=== PATIENT | male | born 1980 | race Caucasian/White ===

== ENCOUNTER 2017-06-25 14:29 | Inpatient (IN) | payer SELFPAY ==
[~2017-06-25] VITALS: Ht 188 cm; Wt 95.0 kg
[~2017-06-25 14:29] MED LIST: Z.0.NO CURRENT MEDS
[2017-06-25 14:30] VITALS: BP 153/97; PULSE 150; RESP 24; TEMP 103; O2SAT 97
[2017-06-25 14:38] VITALS: BP 160/99; PULSE 133; RESP 18; TEMP 103.6; O2SAT 97
[2017-06-25] MEDS ORDERED: SODIUM CHLOR 0.9% 1000 ML INJ 1,000 ML IV SCH ×2 (14:40→14:44)
[2017-06-25] MEDS ORDERED: ONDANSETRON HCL 4 MG/2 ML VIAL IVP ONE (14:45)
[2017-06-25] MEDS ORDERED: VANCOMYCIN INJ 1,000 MG in SODIUM CHLOR 0.9% 250 ML INJ 250 ML IV ONE (14:45)
[2017-06-25] MEDS ORDERED: ACETAMINOPHEN 325 MG TAB PO ONE (14:45)
[2017-06-25] MEDS ORDERED: PIPERACIL-TAZO 3.375 GM PREMIX 50 ML IV ONE (14:45)
[2017-06-25] MEDS ORDERED: MORPHINE SULFATE 4 MG/ML INJ IV PUSH ONE (14:45)
--- NOTE | 2017-06-25 14:53 | PD ---
HPI Chief Complaint: Fever Time Seen by Provider: 14:40 Travel History International Travel<30 days: No Contact w/Intl Traveler<30days: No Traveled to known affect area: No History of Present Illness HPI 36-year-old male to presents to the ED for evaluation of abscess to his right biceps. Per patient she's had this for about 4 days now. Per patient he has a long-standing history of IV drug abuse and per patient he was clean for 5 years but had a relapse. He injected on that same arm around 5 days ago and he started noticing this. Per patient one of his uncles give him an antibiotic but it didn't seem to help. Per patient he then tried to omero it himself with no success and his been getting bigger and more painful. Patient initially was seen and he does appear to be very tachycardic in the 140s 150s with a temperature 100.3. Patient uses Dilaudid. He states having some body aches as well as chest discomfort. He has an allergy to shellfish. Denies any trauma. Unclear of his last tetanus shot. No other medical issues noted. PFSH Past Medical History Musculoskeletal: Yes (LOWER BACK PAIN) Social History Alcohol Use: Yes Tobacco Use: Yes Substance Use: Yes (OXY) Allergies-Medications (Allergen,Severity, Reaction): Coded Allergies: shellfish derived (Verified Allergy, Severe, 06/25/17) Reported Meds & Prescriptions Reported Meds & Active Scripts Active Reported No Current Meds (Miscellaneous Medication) Misc Review of Systems Except as stated in HPI: all other systems reviewed are Neg Physical Exam Narrative GENERAL: SKIN: Warm and dry. HEAD: Atraumatic. Normocephalic. EYES: Pupils equal and round. No scleral icterus. No injection or drainage. ENT: No nasal bleeding or discharge. Mucous membranes pink and moist. Tongue is midline. No uvula deviation. NECK: Trachea midline. No JVD. CARDIOVASCULAR: Regular rate and rhythm. No murmurs, S3, S4. RESPIRATORY: No accessory muscle use. Clear to auscultation. Breath sounds equal bilaterally. GASTROINTESTINAL: Abdomen soft, non-tender, nondistended. Hepatic and splenic margins not palpable. MUSCULOSKELETAL: Extremities without clubbing, cyanosis, or edema. No obvious deformities. Full range of motion of the upper and lower extremities bilaterally. Patient has a significant area of induration as well as erythema which is warm to the touch on the right bicep area. Essentially most of the bicep area is indurated and erythematous. No obvious purulence noted in the bicep itself is really hard to touch. Patient does have lymphadenopathy. Area of induration since about 15 cm in diameter and seems to be creeping into the posterior aspect of the arm as well. Very tender to touch. Patient has a small wound where he tried to omero the abscess. NEUROLOGICAL: Awake and alert. No obvious cranial nerve deficits. Motor grossly within normal limits. Five out of 5 muscle strength in the arms and legs. Normal speech. PSYCHIATRIC: Appropriate mood and affect; insight and judgment normal. Data Data Last Documented VS Vital Signs Date Time Temp Pulse Resp B/P (MAP) Pulse Ox O2 Delivery O2 Flow Rate FiO2 06/25/17 14:46 132 18 96 06/25/17 14:38 103.6 160/99 (119) 06/25/17 14:30 Room Air Orders Orders Complete Blood Count With Diff (06/25/17 14:40) Comprehensive Metabolic Panel (06/25/17 14:40) Prothrombin Time / Inr (Pt) (06/25/17 14:40) Act Partial Throm Time (Ptt) (06/25/17 14:40) Lactic Acid Sepsis Protocol (06/25/17 14:40) Urinalysis - C+S If Indicated (06/25/17 14:40) Blood Culture (06/25/17 14:40) Wound Culture And Gram Stain (06/25/17 14:40) Chest, Single Ap (06/25/17 14:40) Ecg Monitoring (06/25/17 14:40) Iv Access Insert/Monitor (06/25/17 14:40) Oximetry (06/25/17 14:40) Acetaminophen (Tylenol) (06/25/17 14:45) Morphine Inj (Morphine Inj) (06/25/17 14:45) Ondansetron Inj (Zofran Inj) (06/25/17 14:45) Sodium Chlor 0.9% 1000 Ml Inj (Ns 1000 M (06/25/17 14:40) Piperacil-Tazo 3.375 Gm Premix (Zosyn 3. (06/25/17 14:45) Vancomycin Inj (Vancomycin Inj) (06/25/17 14:45) Us Arm Soft Tissue (06/25/17 ) Sodium Chlor 0.9% 1000 Ml Inj (Ns 1000 M (06/25/17 14:44) Lidocai-Epi 1%-1:100,000 Inj (Xylocaine- (06/25/17 16:15) Labs Laboratory Tests Test 06/25/17 15:20 White Blood Count 14.5 TH/MM3 Red Blood Count 4.83 MIL/MM3 Hemoglobin 13.2 GM/DL Hematocrit 39.3 % Mean Corpuscular Volume 81.4 FL Mean Corpuscular Hemoglobin 27.3 PG Mean Corpuscular Hemoglobin Concent 33.6 % Red Cell Distribution Width 13.3 % Platelet Count 216 TH/MM3 Mean Platelet Volume 7.5 FL Neutrophils (%) (Auto) 85.6 % Lymphocytes (%) (Auto) 8.9 % Monocytes (%) (Auto) 5.3 % Eosinophils (%) (Auto) 0.0 % Basophils (%) (Auto) 0.2 % Neutrophils # (Auto) 12.4 TH/MM3 Lymphocytes # (Auto) 1.3 TH/MM3 Monocytes # (Auto) 0.8 TH/MM3 Eosinophils # (Auto) 0.0 TH/MM3 Basophils # (Auto) 0.0 TH/MM3 CBC Comment DIFF FINAL Differential Comment Prothrombin Time 11.8 SEC Prothromb Time International Ratio 1.1 RATIO Activated Partial Thromboplast Time 28.7 SEC Blood Urea Nitrogen 12 MG/DL Creatinine 1.22 MG/DL Random Glucose 147 MG/DL Total Protein 7.8 GM/DL Albumin 3.1 GM/DL Calcium Level 8.2 MG/DL Alkaline Phosphatase 101 U/L Aspartate Amino Transf (AST/SGOT) 15 U/L Alanine Aminotransferase (ALT/SGPT) 19 U/L Total Bilirubin 0.7 MG/DL Sodium Level 132 MEQ/L Potassium Level 3.3 MEQ/L Chloride Level 97 MEQ/L Carbon Dioxide Level 25.2 MEQ/L Anion Gap 10 MEQ/L Estimat Glomerular Filtration Rate 67 ML/MIN Lactic Acid Level 1.7 mmol/L [facility] Medical Decision Making Medical Screen Exam Complete: Yes Emergency Medical Condition: Yes Medical Record Reviewed: Yes Interpretation(s) CBC & BMP Diagram 06/25/17 15:20 Total Protein 7.8, Albumin 3.1 L, Calcium Level 8.2 L, Alkaline Phosphatase 101 , Aspartate Amino Transf (AST/SGOT) 15, Alanine Aminotransferase (ALT/SGPT) 19, Total Bilirubin 0.7 Differential Diagnosis Sepsis versus abscess versus IV drug abuse versus endocarditis versus cellulitis Narrative Course 36-year-old male that presents to the ED for evaluation of infection to the right arm. Patient was properly examined and was found to have signs and symptoms very concerning for sepsis. Patient is very tachycardic with a high fever. Abscess and area of induration itself is impressive with most of the anterior bicep completely erythematosus and indurated. No obvious purulent or fluctuance noted I suspected the mass may be deeper. Case was immediately discussed with my attending Dr. Valverde who agrees with IV antibiotics, labs, US and consult to general surgery. Labs and imaging came back showing elevated white blood cell count otherwise unremarkable. Patient does have a left shift. Case was discussed in my attending Dr Valverde who spoke with Dr. Cabrera over the phone who stated that he declined doing abscess surgically and recommended done at bedside. Case discussed with Dr. Perez, my attending, who evaluated the patient and did a bedside ultrasound. Under his supervision and recommendations I performed the I&D of the abscess. Please refer to my procedure note. About almost 8-10 mls of fluid drained with some improvement of pain. Patient still septic and recommendations for admission. Patient agrees with this plan. Patient will be continued on antibiotics. Case discussed with the residents who agreed to admission. Procedures Procedure Narrative After the risks and benefits were discussed the following procedure was performed: INCISION AND DRAINAGE OF ABSCESS: The area was prepped and was sterilely draped. A subcutaneous wheal of 1 % Xylocaine with a total number 6 mL was used to anesthetize the area. The area was properly anesthetized. A number 11 scalpel was used to make a 2 -cm incision across the area of the abscess. Cultures were obtained. The abscess was drained an irrigated with normal saline. Quarter inch iodoform packing was placed in the wound. Sterile dressing applied. Patient advised to have packing removed in two days. Sepsis Criteria SIRS Criteria (2 or more): Temp > 100.9 or < 96.8, Heart rate over 90 Sepsis Criteria (SIRS+source): Infect source susp/known Criteria Outcome: Meets sepsis criteria Diagnosis Primary Impression: Abscess Additional Impressions: Sepsis Qualified Codes: A41.9 - Sepsis, unspecified organism Cellulitis Qualified Codes: L03.113 - Cellulitis of right upper limb Admitting Information Admitting Physician Requests: Admit Radhames Nieves Jun 25, 2017 14:53
--- NOTE | 2017-06-25 15:39 | RADRPT ---
EXAM DATE/TIME: 06/25/2017 15:08 [facility] COMPARISON: No previous studies available for comparison. INDICATIONS : Fever and right upper arm infection. MEDICAL HISTORY : None. SURGICAL HISTORY : None. ENCOUNTER: Initial ACUITY: 2 days PAIN SCORE: 5/10 LOCATION: Right chest FINDINGS: A single view of the chest demonstrates the lungs to be symmetrically aerated without evidence of mas s, infiltrate or effusion. The cardiomediastinal contours are unremarkable. Osseous structures are intact. CONCLUSION: Normal examination. Jammie Barrow MD on June 25, 2017 at 15:37 Board Certified Radiologist. This report was verified electronically.
--- NOTE | 2017-06-25 15:44 | RADRPT ---
EXAM DATE/TIME: 06/25/2017 15:13 [facility] COMPARISON: No previous studies available for comparison. INDICATIONS : Right upper arm. MEDICAL HISTORY : Lower back pain. Alcohol use. Substance use. SURGICAL HISTORY : None. ENCOUNTER: Initial ACUITY: 2 weeks PAIN SCORE: 10/10 LOCATION: Right arm. AREA EVALUATED: Right upper arm. FINDINGS: MASSES: Imaging of the right upper medial arm demonstrates an area of skin thickening, increased echogenicity of the subcutaneous fat and an ovoid hypoechoic avascular appearing region measuring 7.1 x 4.5 x 2.3 cm with multiple foci of increased echogenicity concerning for air. There is hyperemia i n the surrounding soft tissues. These findings are concerning for abscess or phlegmon. CONCLUSION: Ultrasound findings concerning for abscess and subcutaneous air within the imaged med ial right upper extremity. Jammie Barrow MD on June 25, 2017 at 15:40 Board Certified Radiologist. This report was verified electronically.
[2017-06-25 15:45] LABS: AUTOMATED NEUTROPHIL # 12.4 TH/MM3 (1.8-7.7); BASOPHIL % 0.2 % (0.0-2.0); HEMATOCRIT 39.3 % (39.0-51.0); HEMO FLAGS DIFF FINAL; LYMPH % 8.9 % (9.0-44.0); LYMPHOCYTE # 1.3 TH/MM3 (1.0-4.8); MEAN CELL VOLUME 81.4 FL (80.0-100.0); MEAN CORPUSCULAR HEMOGLOBIN 27.3 PG (27.0-34.0); MEAN CORPUSCULAR HGB CONC 33.6 % (32.0-36.0); MONO % 5.3 % (0.0-8.0); NEUT % 85.6 % (16.0-70.0); PLATELET COUNT 216 TH/MM3 (150-450); RED BLOOD COUNT 4.83 MIL/MM3 (4.50-5.90); RED CELL DISTRIBUTION WIDTH 13.3 % (11.6-17.2); WHITE BLOOD COUNT 14.5 TH/MM3 (4.0-11.0)
[2017-06-25 15:59] LABS: APTT (PATIENT) 28.7 SEC (24.3-30.1); INTERNATIONAL NORMALIZED RATIO 1.1 RATIO; PROTHROMBIN TIME - PATIENT 11.8 SEC (9.8-11.6)
[2017-06-25 16:00] LABS: ALT (GPT) 19 U/L (12-78); ANION GAP 10 MEQ/L (5-15); AST (GOT) 15 U/L (15-37); BICARBONATE 25.2 MEQ/L (21.0-32.0); BLOOD UREA NITROGEN 12 MG/DL (7-18); CHLORIDE 97 MEQ/L (98-107); GLOMERULAR FILTRATION RATE 67 ML/MIN (>89); POTASSIUM 3.3 MEQ/L (3.5-5.1); SODIUM (NA) 132 MEQ/L (136-145)
[2017-06-25 16:02] LABS: ALKALINE PHOSPHATASE 101 U/L (45-117); TOTAL BILIRUBIN ADULT 0.7 MG/DL (0.2-1.0)
[2017-06-25] MEDS ORDERED: LIDOCAINE 1%/EPINEPHrine 1:100,000 SOLN 20 ML VIAL INFIL ONE (16:15)
[2017-06-25 16:56] LABS: BLOOD, URINE NEG (NEG); GLUCOSE,URINE NEG (NEG); KETONE, URINE NEG (NEG); NITRITE,URINE NEG (NEG); PH, URINE 5.5 (5.0-8.5); URINE COLOR COLORLESS (YELLW/STRAW)
[2017-06-25 16:57] LABS: COMMENT (UR) CATH-CULT NOT IND; CULTURE IF INDICATED CATH CULTURE NOT IND
--- NOTE | 2017-06-25 17:12 | HHI.HP ---
HPI Service Family Medicine Primary Care Physician No Primary Care Physician Admission Diagnosis Diagnoses: International Travel<30 Days: No Contact w/Intl Traveler<30days: No Known Affected Area: No History of Present Illness Mr. Garcia is a 36 y/o M with PMHx significant for IV drug abuse presents with swelling of his R bicep. He states that 5-6 days ago he used IV Dilaudid after being sober for the last 5 years. Shortly after using he noticed his bicep was getting hot and becoming red. The next day at the injection site, his bicep started to swell to a "golf ball size." Throughout the wee his arm became more erythematous and painful to the point where he cannot move his arm over the last 2 days. This morning he decided to open the wound itself so he boiled a knife in water and made 2 incisions in wound causing immediate draining of foul smelling purulent discharge. He then decided to come to the ER for evaluation. Currently his pain is 10/10 and he is unable to flex his arm at the elbow. His only other complaint is that he believes that during a BM a couple of days ago he found a "rope worm" in his stool. Since that specific BM he has not had another since. He denies any bloody/greasy stools or change in caliber. He denies eating any questionable foods or raw foods recently as well. Otherwise he has no complaints and denies any chest pain, SOB, NVD, or calf tenderness. (Yasmany Maxwell MD R2) Review of Systems Constitutional: COMPLAINS OF: Fever (4 days), Chills, Dizziness Eyes: DENIES: Blurred vision Ears, nose, mouth, throat: DENIES: Throat pain, Running Nose Respiratory: COMPLAINS OF: Cough, Sputum production (Sometime brown), DENIES: Shortness of breath Cardiovascular: COMPLAINS OF: Chest pain Gastrointestinal: COMPLAINS OF: Black stools, DENIES: Abdominal pain, Diarrhea , Nausea, Vomiting Genitourinary: DENIES: Dysuria Integumentary: DENIES: Rash Neurologic: COMPLAINS OF: Headache Psychiatric: DENIES: Mood changes, Depression (Yasmany Maxwell MD R2) Past Family Social History Past Medical History Denies any past medical history Past Surgical History Denies past surgeries (Yasmany Maxwell MD R2) Allergies: Coded Allergies: shellfish derived (Verified Allergy, Severe, 8/26/17) Family History Father - CAD, CHF Mother - Throat cancer 3 healthy children Social History Lives in [place], originally from [place]. Visiting with and children ( children live with his mother in [place]). 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 Tobacco - 1 ppd 20+ years Alcohol - denies alcohol use, years ago Illicit drugs - Last used IV drugs 5 days ago. He used Dilaudid 4mg injected in to his R antecubital fossa. He also reports smoked cocaine use and injected fentanyl over the last 2-3 days as well. Reports he was 5 years sober prior to using over this past week. Attended rehabilitation in [place]. (Yasmayn Maxwell MD R2) Physical Exam Vital Signs Vital Signs Date Time Temp Pulse Resp B/P (MAP) Pulse Ox O2 Delivery O2 Flow Rate FiO2 06/25/17 14:46 132 18 96 06/25/17 14:38 103.6 133 18 160/99 (119) 97 06/25/17 14:30 103.0 150 24 153/97 (115) 97 Room Air Physical Exam GENERAL: Well-nourished, well-developed male lying in bed in no acute distress SKIN: Warm and dry. No rash. Hyperpigmented. Right upper extremity: Currently the right upper extremity is bandaged s/p incision and drainage by the ER staff. Further examination deferred at this time until entire medical team can evaluate. Please see ER physician's note for full physical exam of extremity. HEENT: Atraumatic, normocephalic with EOMI. PERRLA. Oropharynx clear without erythema or exudate. No rhinorrhea. No LAD, JVD, or thyroid abnormality appreciated. CARDIOVASCULAR: Regular rate and rhythm without obvious murmurs, gallops, or rubs. RESPIRATORY: Clear to auscultation bilaterally with no CRW. No increased work of breathing. GASTROINTESTINAL: Abdomen soft, non-tender, nondistended with positive bowel sounds. No masses appreciated. MUSCULOSKELETAL: No cyanosis or edema. Strength grossly WNL. RUE: Patient unable to flex arm at the elbow due to pain and bicep area. 2+ pulses palpated axillary and radially. Sensation intact throughout the extremity. Range of motion normal with all digits, wrist, and at the shoulder. Nontender lymphadenopathy appreciated in the axilla. BACK: Nontender without obvious deformity. No CVA tenderness. NEURO/PSYCH: Afocal. Awake, alert, and oriented x3. Normal speech and judgment. Laboratory Laboratory Tests Test 06/25/17 15:20 06/25/17 16:43 White Blood Count 14.5 Red Blood Count 4.83 Hemoglobin 13.2 Hematocrit 39.3 Mean Corpuscular Volume 81.4 Mean Corpuscular Hemoglobin 27.3 Mean Corpuscular Hemoglobin Concent 33.6 Red Cell Distribution Width 13.3 Platelet Count 216 Mean Platelet Volume 7.5 Neutrophils (%) (Auto) 85.6 Lymphocytes (%) (Auto) 8.9 Monocytes (%) (Auto) 5.3 Eosinophils (%) (Auto) 0.0 Basophils (%) (Auto) 0.2 Neutrophils # (Auto) 12.4 Lymphocytes # (Auto) 1.3 Monocytes # (Auto) 0.8 Eosinophils # (Auto) 0.0 Basophils # (Auto) 0.0 CBC Comment DIFF FINAL Differential Comment Prothrombin Time 11.8 Prothromb Time International Ratio 1.1 Activated Partial Thromboplast Time 28.7 Blood Urea Nitrogen 12 Creatinine 1.22 Random Glucose 147 Total Protein 7.8 Albumin 3.1 Calcium Level 8.2 Alkaline Phosphatase 101 Aspartate Amino Transf (AST/SGOT) 15 Alanine Aminotransferase (ALT/SGPT) 19 Total Bilirubin 0.7 Sodium Level 132 Potassium Level 3.3 Chloride Level 97 Carbon Dioxide Level 25.2 Anion Gap 10 Estimat Glomerular Filtration Rate 67 Lactic Acid Level 1.7 Urine Color COLORLESS Urine Turbidity CLEAR Urine pH 5.5 Urine Specific [place] 1.001 Urine Protein NEG Urine Glucose (UA) NEG Urine Ketones NEG Urine Occult Blood NEG Urine Nitrite NEG Urine Bilirubin NEG Urine Urobilinogen LESS THAN 2.0 Urine Leukocyte Esterase NEG Urine RBC LESS THAN 1 Urine WBC 1 Microscopic Urinalysis Comment CATH-CULT NOT IND Date/Time Source Procedure Growth Status 06/25/17 15:15 Blood Peripheral Aerobic Blood Culture Pending Received 06/25/17 15:15 Blood Peripheral Anaerobic Blood Culture Pending Received 06/25/17 15:27 Wound Arm Gram Stain - Final Resulted 06/25/17 15:27 Wound Arm Wound Culture Pending Resulted (Yasmany Maxwell MD R2) Result Diagram: 06/25/17 1520 06/25/17 1520 Caprini VTE Risk Assessment Caprini VTE Risk Assessment: Mod/High Risk (score >= 2) Caprini Risk Assessment Model Point Value = 1 Point Value = 2 Point Value = 3 Point Value = 5 Age 41-60 Minor surgery BMI > 25 kg/m2 Swollen legs Varicose veins or History of unexplained or recurrent spontaneous Oral contraceptives or hormone replacement Sepsis (< 1 month) Serious lung disease, including pneumonia (< 1 month) Abnormal pulmonary function Acute myocardial infarction Congestive heart failure (< 1 month) History of inflammatory bowel disease Medical patient at bed rest Age 61-74 Arthroscopic surgery Major open surgery (> 45 min) Laparoscopic surgery (> 45 min) Malignancy Confined to bed (> 72 hours) Immobilizing plaster cast Central venous access Age >= 75 History of VTE Family history of VTE Factor V Leiden Prothrombin [id number] Lupus anticoagulant Anticardiolipin antibodies Elevated serum homocysteine Heparin-induced thrombocytopenia Other congenital or acquired thrombophilia Stroke (< 1 month) Elective arthroplasty Hip, pelvis, or leg fracture Acute spinal cord injury (< 1 month) Prophylaxis Regimen Total Risk Factor Score Risk Level Prophylaxis Regimen 0-1 Low Early ambulation 2 Moderate Order ONE of the following: *Sequential Compression Device (SCD) *Heparin 5000 units SQ BID 3-4 Higher Order ONE of the following medications: *Heparin 5000 units SQ TID *Enoxaparin/Lovenox 40 mg SQ daily (WT < 150 kg, CrCl > 30 mL/min) *Enoxaparin/Lovenox 30 mg SQ daily (WT < 150 kg, CrCl > 10-29 mL/min) *Enoxaparin/Lovenox 30 mg SQ BID (WT < 150 kg, CrCl > 30 mL/min) AND/OR *Sequential Compression Device (SCD) 5 or more Highest Order ONE of the following medications: *Heparin 5000 units SQ TID (Preferred with Epidurals) *Enoxaparin/Lovenox 40 mg SQ daily (WT < 150 kg, CrCl > 30 mL/min) *Enoxaparin/Lovenox 30 mg SQ daily (WT < 150 kg, CrCl > 10-29 mL/min) *Enoxaparin/Lovenox 30 mg SQ BID (WT < 150 kg, CrCl > 30 mL/min) AND *Sequential Compression Device (SCD) (Yasmany Maxwell MD R2) Assessment and Plan Assessment and Plan Mr. Garcia is a 36 y/o M with PMHx significant for IV drug abuse presents with swelling of his R bicep due to purulent cellulitis. Code Status Full Code Discussed Condition With Mr. Nieves, ER ASHLY Goel (Yasmany Maxwell MD R2) Attending Attestation Patient seen and examined. Case reviewed and discussed with the resident team. Agree with plan of care as discussed with me and documented in the resident note. pt seen in ED and he did meet septic criteria but should improve with I & D plus abx (Eunice Gross MD) Problem List: (1) Cellulitis ICD Codes: L03.90 - Cellulitis, unspecified Status: Acute Plan: Patient presenting with cellulitis of his right biceps forming abscess requiring I&D draining mucopurulent material. Patient has had fever up to 103.6 , tachycardia to the 130s, and white blood cell count of 14.5. His likely source of infection is his right bicep abscess. -Chest x-ray: Normal examination -Upper extremity ultrasound: Ultrasound findings concerning for abscess and subcutaneous air within the imaged medial right upper extremity. (Care could possibly be from patient self incising his abscess from earlier in the day) -CBC: WBC 14.5 with 85.6% neutrophils on-lactic acid: 1.7 -Blood cultures 2: Pending -Wound culture 1: Pending -K thermia pad ordered Medications: -Patient received Zosyn, vancomycin, morphine, Zofran, and Tylenol in ER -Vancomycin 1 g twice a day, pharmacy consulted for dosage management -Hydrocodone when necessary for pain with morphine when necessary for breakthrough pain, discussed with the patient thoroughly about risks of using narcotic medication for pain control, however patient is insistent upon narcotics at this time due to his severity of pain -Normal saline at 200 mL per hour -Tylenol when necessary for fever (2) Sepsis ICD Codes: A41.9 - Sepsis, unspecified organism Status: Acute Plan: Patient currently meeting septic criteria with white blood cell count of 14.5, tachycardia of 133 bpm, and fever of 103.6. His likely site of infection is his right bicep abscess. Patient is currently not hypotensive and has maintained blood pressure with normal saline bolus. -Please see plan as above -Lactic acid: 1.7 (3) Abscess ICD Codes: L02.91 - Cutaneous abscess, unspecified Status: Acute Plan: Patient presented with right bicep abscess -Please see plan as above (4) Abnormal bowel movement ICD Codes: R19.8 - Other specified symptoms and signs involving the digestive system and abdomen Status: Acute Plan: Patient endorsing recent bowel movement with "rope worm" found in feces. -Enteric pathogens: Pending -Giardia: Pending -stool ova and parasites: Pending -stool white blood cell: Pending -C. difficile toxin: Pending (5) IV drug abuse ICD Codes: F19.10 - Other psychoactive substance abuse, uncomplicated Status: Chronic Plan: Patient with history of IV drug abuse who recently relapsed -Monitor for withdrawal symptoms -Avoid IV pain medication (6) Tobacco abuse ICD Codes: Z72.0 - Tobacco use Status: Chronic Plan: Patient with history of tobacco abuse -Nicotine patch 14 mg daily (7) Nutrition, metabolism, and development symptoms ICD Codes: R63.8 - Other symptoms and signs concerning food and fluid intake Plan: -Diet: Regular as tolerated -Fluids: Normal saline at 200 mL per hour as patient is currently septic -Electrolytes: Hypokalemic, repleted, continue to monitor -Prophylaxis: Tylenol when necessary for fever, Vistaril when necessary for insomnia, Zofran when necessary for nausea/vomiting, DuoNeb when necessary for shortness of breath (8) Surgical contraindication to deep vein thrombosis (DVT) prophylaxis ICD Codes: Z53.09 - Procedure and treatment not carried out because of other contraindication Plan: -Defer pharmacological DVT prophylaxis as patient recently had an I&D of right bicep which could possibly require further surgical exploration -SCD/TEDs (Yasmany Maxwell MD R2) Physician Certification 2 Midnight Certification Type: Admission for Inpatient Services Order for Inpatient Services The services are ordered in accordance with Medicare regulations or non- Medicare payer requirements, as applicable. In the case of services not specified as inpatient-only, they are appropriately provided as inpatient services in accordance with the 2-midnight benchmark. Estimated LOS (days): 3 3 days is the estimated time the patient will need to remain in the hospital, assuming treatment plan goals are met and no additional complications. Post-Hospital Plan: Home (Yasmany Maxwell MD R2) Problem Qualifiers (1) Cellulitis: Qualified Codes: L03.113 - Cellulitis of right upper limb (2) Sepsis: Qualified Codes: A41.9 - Sepsis, unspecified organism Yasmany Maxwell MD R2 Jun 25, 2017 17:11 Eunice Gross MD Jun 26, 2017 13:56
[2017-06-25] MEDS ORDERED: Vancomycin Consult Pharmacy 1 EA OTHER SCH (17:45)
[2017-06-25] MEDS ORDERED: SODIUM CHLORIDE 0.9% FLUSH 10 ML FLUSH IV FLUSH PRN (17:45)
[2017-06-25] MEDS ORDERED: KETOROLAC TROMETHAMINE 30 MG/ML (IVP) VIAL IVP PRN (17:45)
[2017-06-25] MEDS ORDERED: ACETAMINOPHEN 500 MG CPLT PO PRN (17:45)
[2017-06-25] MEDS ORDERED: VANCOMYCIN INJ 1,000 MG in SODIUM CHLOR 0.9% 250 ML INJ 250 ML IV SCH (18:45)
[2017-06-25 19:18] VITALS: BP 119/68; PULSE 105; RESP 18; TEMP 100.8; O2SAT 100
[2017-06-25] MEDS: SODIUM CHLOR 0.9% 1000 ML INJ 1,000 ML IV SCH (20:06)
[2017-06-25] MEDS: SODIUM CHLORIDE 0.9% FLUSH 10 ML FLUSH IV FLUSH SCH (21:00)
[2017-06-25 21:08] VITALS: BP 123/77; PULSE 107; RESP 18; TEMP 98.4; O2SAT 98
[2017-06-25] MEDS: VANCOMYCIN INJ 1,500 MG in SODIUM CHLORID 0.9% 500 ML INJ 500 ML IV SCH (21:57)
[2017-06-25] MEDS ORDERED: ACETAMINOPHEN/HYDROcodone 325 MG/5 MG TAB PO PRN (22:00)
[2017-06-25] MEDS ORDERED: NALOXONE HCL 0.4 MG/ML AMP IV PRN (22:00)
[2017-06-25] MEDS: ACETAMINOPHEN/HYDROcodone 325 MG/10 MG TAB PO PRN (22:17)
--- NOTE | 2017-06-25 22:17 | EKG ---
Date Performed: 06/25/2017 Time Performed: 18:29:51 PTAGE: 36 years EKG: SINUS TACHYCARDIA WITH SHORT IN INTERVAL POSSIBLE LEFT ATRIAL ENLARGEMENT ABNORMAL RHYTHM E CG PREVIOUS TRACING : 11/07/2003 08.50 Compared to prior tracing no significant change DOCTOR: Callie Conrad Interpretating Date/Time 06/25/2017 22:15:39
[2017-06-25 23:26] VITALS: BP 114/68; PULSE 101; RESP 18; TEMP 100.6
[2017-06-26] MEDS: MORPHINE SULFATE 4 MG/ML INJ IV PRN ×3 (00:24→12:15)
[2017-06-26] MEDS ORDERED: RESP: ALBUTEROL 2.5 MG/IPRATROPIUM 0.5 MG NEB (PRN) INH (02:00)
[2017-06-26] MEDS ORDERED: POTASSIUM CHLORIDE 10 MEQ CONTROLLED RELEASE TAB PO ONE (02:00)
[2017-06-26] MEDS ORDERED: ONDANSETRON HCL 4 MG/2 ML VIAL IV PUSH PRN (02:00)
[2017-06-26] MEDS: SODIUM CHLOR 0.9% 1000 ML INJ 1,000 ML IV SCH ×3 (03:04→11:00)
[2017-06-26 03:26] VITALS: BP 115/70; PULSE 100; RESP 18; TEMP 100.2; O2SAT 95
[2017-06-26] MEDS: ACETAMINOPHEN/HYDROcodone 325 MG/10 MG TAB PO PRN ×3 (05:34→15:42)
[2017-06-26 07:40] VITALS: BP 110/69; PULSE 71; RESP 18; TEMP 99; O2SAT 98
[2017-06-26] MEDS: SODIUM CHLORIDE 0.9% FLUSH 10 ML FLUSH IV FLUSH SCH (07:58)
[2017-06-26] MEDS: VANCOMYCIN INJ 1,500 MG in SODIUM CHLORID 0.9% 500 ML INJ 500 ML IV SCH (08:32)
[2017-06-26] MEDS ORDERED: NICOTINE 14 MG/24 HR PATCH T-DERMAL SCH (09:00)
[2017-06-26 09:16] LABS: AUTOMATED NEUTROPHIL # 8.9 TH/MM3 (1.8-7.7); BASOPHIL % 0.3 % (0.0-2.0); EOSINOPHIL # 0.1 TH/MM3 (0-0.4); EOSINOPHIL % 0.4 % (0.0-4.0); HEMATOCRIT 36.8 % (39.0-51.0); HEMO FLAGS DIFF FINAL; LYMPHOCYTE # 1.9 TH/MM3 (1.0-4.8); MEAN CELL VOLUME 82.5 FL (80.0-100.0); MEAN CORPUSCULAR HEMOGLOBIN 26.7 PG (27.0-34.0); MEAN CORPUSCULAR HGB CONC 32.3 % (32.0-36.0); MONO % 7.5 % (0.0-8.0); NEUT % 75.8 % (16.0-70.0); PLATELET COUNT 205 TH/MM3 (150-450); RED BLOOD COUNT 4.47 MIL/MM3 (4.50-5.90); RED CELL DISTRIBUTION WIDTH 13.8 % (11.6-17.2); WHITE BLOOD COUNT 11.7 TH/MM3 (4.0-11.0)
[2017-06-26 10:01] LABS: BICARBONATE 24.5 MEQ/L (21.0-32.0); POTASSIUM 4.1 MEQ/L (3.5-5.1)
--- NOTE | 2017-06-26 10:11 | HHI.HP ---
[facility] Service Family Medicine Primary Care Physician No Primary Care Physician Admission Diagnosis Diagnoses: (1) Cellulitis Diagnosis: Principal (2) Sepsis Diagnosis: Principal (3) Abscess Diagnosis: Principal (4) Abnormal bowel movement Diagnosis: Principal (5) IV drug abuse Diagnosis: Principal (6) Tobacco abuse Diagnosis: Principal (7) Nutrition, metabolism, and development symptoms Diagnosis: Principal (8) Surgical contraindication to deep vein thrombosis (DVT) prophylaxis Diagnosis: Principal International Travel<30 Days: No Contact w/Intl Traveler<30days: No Known Affected Area: No History of Present Illness Mr. Garcia is a 36 y/o M with PMHx significant for IV drug abuse who presents with swelling of his R bicep. He states that 5-6 days prior to admission he used IV Dilaudid after being sober for the last 5 years. Shortly after using he noticed his bicep was getting hot and becoming red. The next day at the injection site, his bicep started to swell to a "golf ball size." Throughout the week his arm became more erythematous and painful to the point where he cannot move his arm over the last 2 days prior to admission. That morning he decided to open the wound ihimself so he boiled a knife in water and made 2 incisions in wound causing immediate draining of foul smelling purulent discharge. He then decided to come to the ER for evaluation. His pain was 10/10 and he is unable to flex his arm at the elbow initially. His only other complaint is that he believes that during a BM a couple of days ago he found a "rope worm" in his stool. Since that specific BM he has not had another since. He denies any bloody/greasy stools or change in caliber. He denies eating any questionable foods or raw foods recently as well. Otherwise he has no complaints and denies any chest pain, SOB, NVD, or calf tenderness. Overnight, he required some narcotics for pain meds and even threatened to leave AMA if not medicated. He is reasonably comfortable except when his dressing was being changed today. his fevers are better and his s/s of sepsis are better Review of Systems Other Constitutional: COMPLAINS OF: Fever (4 days), Chills, Dizziness Eyes: DENIES: Blurred vision Ears, nose, mouth, throat: DENIES: Throat pain, Running Nose Respiratory: COMPLAINS OF: Cough, Sputum production (Sometime brown), DENIES: Shortness of breath Cardiovascular: COMPLAINS OF: Chest pain Gastrointestinal: COMPLAINS OF: Black stools, DENIES: Abdominal pain, Diarrhea , Nausea, Vomiting Genitourinary: DENIES: Dysuria Integumentary: DENIES: Rash Neurologic: COMPLAINS OF: Headache Psychiatric: DENIES: Mood changes, Depression Past Family Social History Past Medical History Denies any past medical history Past Surgical History Denies past surgeries Allergies: Coded Allergies: shellfish derived (Verified Allergy, Severe, 06/25/17) Family History Father - CAD, CHF Mother - Throat cancer 3 healthy children Social History Lives in [place], originally from [place]. Visiting with and children ( children live with his mother in [place]). 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 Tobacco - 1 ppd 20+ years Alcohol - denies alcohol use, years ago Illicit drugs - Last used IV drugs 5 days ago. He used Dilaudid 4mg injected in to his R antecubital fossa. He also reports smoked cocaine use and injected fentanyl over the last 2-3 days as well. Reports he was 5 years sober prior to using over this past week. Attended rehabilitation in [place]. Physical Exam Vital Signs Vital Signs Date Time Temp Pulse Resp B/P (MAP) Pulse Ox O2 Delivery O2 Flow Rate FiO2 06/26/17 07:40 99.0 71 18 110/69 (83) 98 06/26/17 03:26 100.2 100 18 115/70 (85) 95 06/25/17 23:26 100.6 101 18 114/68 (83) 06/25/17 21:08 98.4 107 18 123/77 (92) 98 06/25/17 20:53 06/25/17 19:18 100.8 105 18 119/68 (85) 100 Room Air 06/25/17 14:46 132 18 96 06/25/17 14:38 103.6 133 18 160/99 (119) 97 06/25/17 14:30 103.0 150 24 153/97 (115) 97 Room Air Physical Exam GENERAL: Well-nourished, well-developed male lying in bed in no acute distress except when his wound was being expressed for pus SKIN: Warm and dry. No rash. Hyperpigmented. Right upper extremity: erythema and edema extending from correction between his shoulder and elbow to almost his wrist. area of I and D is open and draining pus this am. no tissue seen. able to move his hand well today HEENT: Atraumatic, normocephalic with EOMI. PERRLA. Oropharynx clear without erythema or exudate. No rhinorrhea. No LAD, JVD, or thyroid abnormality appreciated. CARDIOVASCULAR: Regular rate and rhythm without obvious murmurs, gallops, or rubs. RESPIRATORY: Clear to auscultation bilaterally with no CRW. No increased work of breathing. GASTROINTESTINAL: Abdomen soft, non-tender, nondistended with positive bowel sounds. No masses appreciated. MUSCULOSKELETAL: No cyanosis or edema. Strength grossly WNL. RUE: Patient able to flex arm at the elbow today. 2+ pulses palpated axillary and radially. Sensation intact throughout the extremity. Range of motion normal with all digits, wrist, and at the shoulder. Nontender lymphadenopathy appreciated in the axilla. BACK: Nontender without obvious deformity. No CVA tenderness. NEURO/PSYCH: Afocal. Awake, alert, and oriented x3. Normal speech and judgment. Laboratory Laboratory Tests Test 06/25/17 15:20 06/25/17 16:43 06/26/17 08:21 White Blood Count 14.5 11.7 Red Blood Count 4.83 4.47 Hemoglobin 13.2 11.9 Hematocrit 39.3 36.8 Mean Corpuscular Volume 81.4 82.5 Mean Corpuscular Hemoglobin 27.3 26.7 Mean Corpuscular Hemoglobin Concent 33.6 32.3 Red Cell Distribution Width 13.3 13.8 Platelet Count 216 205 Mean Platelet Volume 7.5 7.2 Neutrophils (%) (Auto) 85.6 75.8 Lymphocytes (%) (Auto) 8.9 16.0 Monocytes (%) (Auto) 5.3 7.5 Eosinophils (%) (Auto) 0.0 0.4 Basophils (%) (Auto) 0.2 0.3 Neutrophils # (Auto) 12.4 8.9 Lymphocytes # (Auto) 1.3 1.9 Monocytes # (Auto) 0.8 0.9 Eosinophils # (Auto) 0.0 0.1 Basophils # (Auto) 0.0 0.0 CBC Comment DIFF FINAL DIFF FINAL Differential Comment Prothrombin Time 11.8 Prothromb Time International Ratio 1.1 Activated Partial Thromboplast Time 28.7 Blood Urea Nitrogen 12 9 Creatinine 1.22 0.70 Random Glucose 147 114 Total Protein 7.8 Albumin 3.1 Calcium Level 8.2 Alkaline Phosphatase 101 Aspartate Amino Transf (AST/SGOT) 15 Alanine Aminotransferase (ALT/SGPT) 19 Total Bilirubin 0.7 Sodium Level 132 137 Potassium Level 3.3 4.1 Chloride Level 97 107 Carbon Dioxide Level 25.2 24.5 Anion Gap 10 6 Estimat Glomerular Filtration Rate 67 127 Lactic Acid Level 1.7 Urine Color COLORLESS Urine Turbidity CLEAR Urine pH 5.5 Urine Specific [place] 1.001 Urine Protein NEG Urine Glucose (UA) NEG Urine Ketones NEG Urine Occult Blood NEG Urine Nitrite NEG Urine Bilirubin NEG Urine Urobilinogen LESS THAN 2.0 Urine Leukocyte Esterase NEG Urine RBC LESS THAN 1 Urine WBC 1 Microscopic Urinalysis Comment CATH-CULT NOT IND Date/Time Source Procedure Growth Status 06/25/17 15:20 Blood Peripheral Aerobic Blood Culture Pending Received 06/25/17 15:20 Blood Peripheral Anaerobic Blood Culture Pending Received 06/25/17 15:27 Wound Arm Gram Stain - Final Resulted 06/25/17 15:27 Wound Arm Wound Culture Pending Resulted Result Diagram: 06/26/17 0821 06/26/17 0821 Septic Shock Reassessment Heart: Regular rate and rhythm Lungs: Clear Skin: Warm, Dry Caprini VTE Risk Assessment Caprini VTE Risk Assessment: Mod/High Risk (score >= 2) Caprini Risk Assessment Model Point Value = 1 Point Value = 2 Point Value = 3 Point Value = 5 Age 41-60 Minor surgery BMI > 25 kg/m2 Swollen legs Varicose veins or History of unexplained or recurrent spontaneous Oral contraceptives or hormone replacement Sepsis (< 1 month) Serious lung disease, including pneumonia (< 1 month) Abnormal pulmonary function Acute myocardial infarction Congestive heart failure (< 1 month) History of inflammatory bowel disease Medical patient at bed rest Age 61-74 Arthroscopic surgery Major open surgery (> 45 min) Laparoscopic surgery (> 45 min) Malignancy Confined to bed (> 72 hours) Immobilizing plaster cast Central venous access Age >= 75 History of VTE Family history of VTE Factor V Leiden Prothrombin [id number] Lupus anticoagulant Anticardiolipin antibodies Elevated serum homocysteine Heparin-induced thrombocytopenia Other congenital or acquired thrombophilia Stroke (< 1 month) Elective arthroplasty Hip, pelvis, or leg fracture Acute spinal cord injury (< 1 month) Prophylaxis Regimen Total Risk Factor Score Risk Level Prophylaxis Regimen 0-1 Low Early ambulation 2 Moderate Order ONE of the following: *Sequential Compression Device (SCD) *Heparin 5000 units SQ BID 3-4 Higher Order ONE of the following medications: *Heparin 5000 units SQ TID *Enoxaparin/Lovenox 40 mg SQ daily (WT < 150 kg, CrCl > 30 mL/min) *Enoxaparin/Lovenox 30 mg SQ daily (WT < 150 kg, CrCl > 10-29 mL/min) *Enoxaparin/Lovenox 30 mg SQ BID (WT < 150 kg, CrCl > 30 mL/min) AND/OR *Sequential Compression Device (SCD) 5 or more Highest Order ONE of the following medications: *Heparin 5000 units SQ TID (Preferred with Epidurals) *Enoxaparin/Lovenox 40 mg SQ daily (WT < 150 kg, CrCl > 30 mL/min) *Enoxaparin/Lovenox 30 mg SQ daily (WT < 150 kg, CrCl > 10-29 mL/min) *Enoxaparin/Lovenox 30 mg SQ BID (WT < 150 kg, CrCl > 30 mL/min) AND *Sequential Compression Device (SCD) Assessment and Plan Assessment and Plan Mr. Garcia is a 36 y/o M with PMHx significant for IV drug abuse presents with swelling of his R bicep due to purulent cellulitis. Problem List: (1) Cellulitis ICD Codes: L03.90 - Cellulitis, unspecified Status: Acute Plan: Patient presenting with cellulitis of his right biceps forming abscess requiring I&D draining mucopurulent material. Patient has had fever up to 103.6 , tachycardia to the 130s, and white blood cell count of 14.5. His likely source of infection is his right bicep abscess. his sepsis is improving today -Chest x-ray: Normal examination -Upper extremity ultrasound: Ultrasound findings concerning for abscess and subcutaneous air within the imaged medial right upper extremity. (Air could be from patient self incising his abscess from earlier in the day) -CBC: WBC 14.5 with 85.6% neutrophils on-lactic acid: 1.7 -Blood cultures 2: Pending -Wound culture 1: Pending -K thermia pad ordered Medications: -Patient received Zosyn, vancomycin, morphine, Zofran, and Tylenol in ER -Vancomycin 1 g twice a day, pharmacy consulted for dosage management -Hydrocodone when necessary for pain with morphine when necessary for breakthrough pain, discussed with the patient thoroughly about risks of using narcotic medication for pain control, however patient is insistent upon narcotics at this time due to his severity of pain -Normal saline at 200 mL per hour -Tylenol when necessary for fever (2) Sepsis ICD Codes: A41.9 - Sepsis, unspecified organism Status: Acute Plan: Patient met septic criteria with white blood cell count of 14.5, tachycardia of 133 bpm, and fever of 103.6. His likely site of infection is his right bicep abscess. Patient is currently not hypotensive and has maintained blood pressure with normal saline bolus. -Please see plan as above -Lactic acid: 1.7 (3) Abscess ICD Codes: L02.91 - Cutaneous abscess, unspecified Status: Acute Plan: Patient presented with right bicep abscess -Please see plan as above (4) Abnormal bowel movement ICD Codes: R19.8 - Other specified symptoms and signs involving the digestive system and abdomen Status: Acute Plan: Patient endorsing recent bowel movement with "rope worm" found in feces. -Enteric pathogens: Pending -Giardia: Pending -stool ova and parasites: Pending -stool white blood cell: Pending -C. difficile toxin: Pending (5) IV drug abuse ICD Codes: F19.10 - Other psychoactive substance abuse, uncomplicated Status: Chronic Plan: Patient with history of IV drug abuse who recently relapsed -Monitor for withdrawal symptoms -Avoid IV pain medication (6) Tobacco abuse ICD Codes: Z72.0 - Tobacco use Status: Chronic Plan: Patient with history of tobacco abuse -Nicotine patch 14 mg daily (7) Nutrition, metabolism, and development symptoms ICD Codes: R63.8 - Other symptoms and signs concerning food and fluid intake Plan: -Diet: Regular as tolerated -Fluids: Normal saline at 200 mL per hour as patient is currently septic, can decrease today -Electrolytes: Hypokalemic, repleted, continue to monitor -Prophylaxis: Tylenol when necessary for fever, Vistaril when necessary for insomnia, Zofran when necessary for nausea/vomiting, DuoNeb when necessary for shortness of breath (8) Surgical contraindication to deep vein thrombosis (DVT) prophylaxis ICD Codes: Z53.09 - Procedure and treatment not carried out because of other contraindication Plan: -Defer pharmacological DVT prophylaxis as patient recently had an I&D of right bicep which could possibly require further surgical exploration -SCD/TEDs Physician Certification 2 Midnight Certification Type: Admission for Inpatient Services Order for Inpatient Services The services are ordered in accordance with Medicare regulations or non- Medicare payer requirements, as applicable. In the case of services not specified as inpatient-only, they are appropriately provided as inpatient services in accordance with the 2-midnight benchmark. Estimated LOS (days): 3 3 days is the estimated time the patient will need to remain in the hospital, assuming treatment plan goals are met and no additional complications. Post-Hospital Plan: Home Problem Qualifiers (1) Cellulitis: Qualified Codes: L03.113 - Cellulitis of right upper limb (2) Sepsis: Qualified Codes: A41.9 - Sepsis, unspecified organism Eunice Gross MD Jun 26, 2017 10:11
[2017-06-26 11:37] VITALS: BP 120/72; PULSE 66; RESP 20; TEMP 98.8; O2SAT 100
[2017-06-26 16:43] VITALS: BP 110/71; PULSE 75; RESP 21; TEMP 99.2; O2SAT 99
--- NOTE | 2017-06-26 19:16 | PD.AMA ---
Against Medical Advice Note Discharge Disposition: Against Medical Advice Pt Condition on Discharge: Stable AMA Statement Patient Jignesh Garcia has decided to leave the hospital against medical advice. This patient has the capacity to refuse care and understands the risks of leaving, including permanent disability and/or , and has had an opportunity to ask questions about his condition. The patient has been informed that he may return for care at any time, and follow up has been arranged/ advised. Alia Arciniega MD R1 Jun 26, 2017 19:16
[2017-06-26] MEDS ORDERED: REMOVE OLD PATCH T-DERMAL SCH (21:00)
[2017-06-27] MEDS ORDERED: PHARMACY ORDERED LAB ONE (08:45)
--- NOTE | 2017-06-27 16:06 | HHI.PR ---
Addendum to Inpatient Note Addendum Reason: Additional Documentation Additional Information Per discussion with attending, Dr. Gross, the family medicine service will not accept this patient as a bounce back in the future due to noncompliance and disrespectful behavior. Yasmany Maxwell MD R2 Jun 27, 2017 16:06
== END 2017-06-26 19:02 | disposition left against medical advice (07) | DRG 872 ==
LOC: NEPE 14:29 → NEDA 17:02 → NEPFCDU 20:58
PROVIDERS: ADMIT Family Medicine; ATTEND Family Medicine
DX: A41.9 Sepsis, unspecified organism (principal); L03.113 Cellulitis of right upper limb; G47.00 Insomnia, unspecified; F19.10 Other psychoactive substance abuse, uncomplicated; F14.90 Cocaine use, unspecified, uncomplicated; Z72.0 Tobacco use; Z91.19 Patient's noncompliance with other medical treatment and regimen; Z91.013 Allergy to seafood
CPT/HCPCS: 10061; 71010; 76882; 80048; 80053; 81001; 83605; 85025; 85610; 85730; 86403; 87040; 87070; 87186; 87205; 93005; 96361; 96365; 96375; J2270; J2405; J2543; J3370; J7030; J7040; J7050